=== PATIENT | male | born 1970 | race Caucasian/White ===

== ENCOUNTER → 2018-10-20 | Outpatient (CLI) | payer OTHER | LOC: M.RAD 17:22 | DX: J06.9 Acute upper respiratory infection, unspecified (principal) ==

== ENCOUNTER → 2019-07-28 | Outpatient (CLI) | payer OTHER | LOC: M.RAD 15:19 | DX: I10 Essential (primary) hypertension (principal); R05 Cough; F41.1 Generalized anxiety disorder ==

== ENCOUNTER → 2019-08-13 | Outpatient (CLI) | payer OTHER ==
--- NOTE | ~2019-08-13 | PF ---
[address] [address] PULMONARY FUNCTION REPORT Name: SCOTT BERRY Room: [facility].#: [id number] Admission: 08/13/19 Attend Phys: Parag Roberts MD Discharge: Date of : 74 Report #: [id number] THIS REPORT FOR: //name// CC: Parag Roberts PULMONARY FUNCTION TEST Spirogram shows normal forced vital capacity normal FEV1 with normal ratio, normal mid flow rate. Lung volumes were within normal with normal total lung capacity and diffusion capacity was normal. This is consistent with normal PFT, which was unremarkable and values were within normal limits. Clinical correlation is indicated. By: [id number] Sandra Lawrence MD /nt
== END ==
LOC: M.PUL 12:43
DX: J84.89 Other specified interstitial pulmonary diseases (principal); J41.0 Simple chronic bronchitis; I10 Essential (primary) hypertension; F41.1 Generalized anxiety disorder

== ENCOUNTER → 2019-09-21 | Outpatient (CLI) | payer OTHER ==
[~2019-09-21] MED LIST: COZAAR 25 MG TA25 M1 PO; KLONOPIN1 MG PO
== END ==
LOC: M.RAD 14:38
DX: R05 Cough (principal); M47.814 Spondylosis without myelopathy or radiculopathy, thoracic region

== ENCOUNTER 2019-09-22 16:05 | Emergency (ER) | payer OTHER ==
[~2019-09-22] VITALS: Ht 182.9 cm; Wt 104.3 kg
[2019-09-22] MEDS ORDERED: COZAAR 25 MG TA25 M1 PO (16:20)
[2019-09-22] MEDS ORDERED: KLONOPIN1 MG PO (16:21)
== END 2019-09-22 17:40 | disposition home or self-care (01) ==
LOC: M.ERS 16:05
DX: R06.00 Dyspnea, unspecified (principal); F41.9 Anxiety disorder, unspecified; I10 Essential (primary) hypertension; Z87.09 Personal history of other diseases of the respiratory system; Z87.891 Personal history of nicotine dependence; Z88.5 Allergy status to narcotic agent

== ENCOUNTER → 2019-09-22 | Outpatient (CLI) | payer OTHER ==
--- NOTE | 2019-09-22 15:20 | 2DMMODE ---
[place] [address] 2 D/M-MODE ECHOCARDIOGRAM Name: SCOTT BERRY Room: [facility]#: [id number] Admission: 09/22/19 Attend Phys: Parag Roberts, Discharge: Date of : 74 Date of Service: 09/22/19 1520 Report #: [id number] THIS REPORT FOR: //name// APPROVED REPORT Study performed: 09/22/2019 14:30:26 EXAM: Comprehensive 2D, Doppler, and color-flow Echocardiogram Patient Location: Out-Patient BSA: 2.39 HR: 87 bpm BP: 132/78 mmHg Other Information Study Quality: Good Indications Dyspnea 2D Dimensions IVSd: 12.21 (7-11mm) LVOT Diam: 20.43 (18-24mm) LVDd: 45.49 mm PWd: 11.14 (7-11mm) Ascending Ao: 27.42 (22-36mm) LVDs: 28.50 (25-40mm) Aortic Root: 31.16 mm Volumes Left Atrial Volume (Systole) LA ESV Index: 13.50 mL/m2 Aortic Valve AoV Peak Toney.: 1.22 m/s AO Peak Gr.: 5.98 mmHg LVOT Max P.63 mmHg AO Mean Gr.: 3.72 mmHg LVOT Mean P.23 mmHg LVOT Max V: 1.08 m/s AO V2 VTI: 22.36 cm LVOT Mean V: 0.69 m/s DORI (VTI): 3.23 cm2 LVOT V1 VTI: 22.01 cm Mitral Valve E/A Ratio: 1.01 MV Decel. Time: 186.47 ms MV E Max Toney.: 0.73 m/s MV PHT: 54.08 ms MVA (PHT): 4.07 cm2 [place] [address] 2 D/M-MODE ECHOCARDIOGRAM Name: SCOTT BERRY ALEX Room: [facility]#: [id number] Admission: 09/22/19 Attend Phys: Parag Roberts, Discharge: Date of : 74 Date of Service: 09/22/19 1520 Report #: [id number] TDI E/Lateral E': 6.08 E/Medial E': 7.30 Medial E' Toney.: 0.10 m/s Lateral E' Toney.: 0.12 m/s Pulmonary Valve PV Peak Toney.: 1.13 m/s PV Peak Gr.: 5.11 mmHg Left Ventricle The left ventricle is normal size. There is normal LV segmental wall motion. There is normal left ventricular wall thickness. Left ventricular systolic function is normal. LVEF is 65-70%. Transmitral Doppler flow pattern suggests impaired LV relaxation. Right Ventricle The right ventricle is normal size. The right ventricular systolic function is normal. Atria The left atrium size is normal. The right atrium size is normal. Aortic Valve The aortic valve is normal in structure. No aortic regurgitation is present. There is no aortic valvular stenosis. Mitral Valve The mitral valve is normal in structure. There is no mitral valve regurgitation noted. No evidence of mitral valve stenosis. Tricuspid Valve The tricuspid valve is normal in structure. There is no tricuspid valve regurgitation noted. Pulmonic Valve The pulmonary valve is normal in structure. There is no pulmonic valvular regurgitation. Great Vessels The aortic root is normal in size. IVC is normal in size and collapses >50% with inspiration. Pericardium There is no pericardial [place] [address] 2 D/M-MODE ECHOCARDIOGRAM Name: SCOTT BERRY Room: [facility]#: [id number] Admission: 09/22/19 Attend Phys: Parag Roberts, Discharge: Date of : 74 Date of Service: 09/22/19 1520 Report #: [id number] <Conclusion> The left ventricle is normal size. There is normal left ventricular wall thickness. Left ventricular systolic function is normal. LVEF is 65-70%. Transmitral Doppler flow pattern suggests impaired LV relaxation. IVC is normal in size and collapses >50% with inspiration. <ELECTRONICALLY SIGNED> By: Alex Goldstein MD, FACC 09/22/19 1520 1520 1520 Alex Goldstein MD, FACC /INF
== END ==
LOC: M.CRD 14:36
DX: R06.00 Dyspnea, unspecified (principal); R05 Cough; R53.83 Other fatigue

== ENCOUNTER 2021-08-14 18:21 | Emergency (ER) | payer OTHER ==
[~2021-08-14] VITALS: Ht 193 cm; Wt 102.1 kg
[2021-08-14] MEDS ORDERED: VITAMIN D210 MCG PO (18:31)
[2021-08-14] MEDS ORDERED: ESCITALOPRAM (18:31)
[2021-08-14] MEDS ORDERED: IBUPROFEN 800800 M1 PO (20:49)
[2021-08-14 21:06] VITALS: BP 143/93
== END 2021-08-14 21:06 | disposition home or self-care (01) ==
LOC: M.ERS 18:21
DX: S93.401A Sprain of unspecified ligament of right ankle, initial encounter (principal); F41.9 Anxiety disorder, unspecified; I10 Essential (primary) hypertension; Z79.899 Other long term (current) drug therapy; Z87.891 Personal history of nicotine dependence; Z88.5 Allergy status to narcotic agent; W23.0XXA Caught, crushed, jammed, or pinched between moving objects, initial encounter; Y93.89 Activity, other specified; Y92.89 Other specified places as the place of occurrence of the external cause; Y99.8 Other external cause status